=== PATIENT | female | born 1955 ===

== ENCOUNTER 2017-12-09 15:48 | Emergency (ER) | payer SELFPAY ==
[~2017-12-09] VITALS: Ht 160 cm; Wt 56.8 kg
[2017-12-09 16:19] VITALS: BP 130/79
== END 2017-12-09 17:49 | disposition left against medical advice (07) ==
LOC: EMS 15:51
DX: T22.211A Burn of second degree of right forearm, initial encounter (principal); X13.1XXA Other contact with steam and other hot vapors, initial encounter; Y93.89 Activity, other specified; Y92.89 Other specified places as the place of occurrence of the external cause; Y99.8 Other external cause status; Z53.21 Procedure and treatment not carried out due to patient leaving prior to being seen by health care provider